=== PATIENT | female | born 1995 | race Caucasian/White ===

== ENCOUNTER 2017-05-04 14:53 | Emergency (ER) | payer SELFPAY ==
[~2017-05-04] VITALS: Ht 157.5 cm; Wt 57.3 kg
[2017-05-04 15:54] VITALS: BP 104/58
== END 2017-05-04 16:06 | disposition home or self-care (01) ==
LOC: EMS 14:55
DX: S51.812D Laceration without foreign body of left forearm, subsequent encounter (principal); X58.XXXD Exposure to other specified factors, subsequent encounter
CPT/HCPCS: 99281